=== PATIENT | female | born 1975 | race Caucasian/White ===

== ENCOUNTER 2017-01-03 16:24 | Emergency (ER) | payer OTHER ==
[~2017-01-03] VITALS: Ht 170.2 cm; Wt 73.6 kg
[~2017-01-03 16:24] MED LIST: DESV50TA PO; LAMO200T PO; LORA-303 PO; LORA0.5T PO; OMEP20TA86 PO; ONDA4TAB9 PO
[2017-01-03 16:51] VITALS: BP 119/87; PULSE 95; RESP 18; O2SAT 100
[2017-01-03] MEDS ORDERED: hydrOXYzine Pamoate 25 mg Capsule PO ONE (18:15)
--- NOTE | 2017-01-03 18:22 | ED.REPORT ---
HPI-Psychiatric Illness Date of Service Jan 03, 2017 ED Provider: Hardeep Feldman PA-C Nohelia is a 41-year-old female with a history of bipolar disorder, PTSD and anxiety who presents with a chief complaint anxiety. She reports worsening anxiety and panic over the last week associated with reduced sleep, reduced eating. States she does not feel safe to be by herself because of the possible panic attacks. Patient states that her primary care provider is weaning her from benzodiazepines. She reports taking half milligram of lorazepam twice a day previously. She is also recently discontinued Proventil as in. She is currently taking Trileptal, Pristiq, clonidine and buspirone. She reports being engaged with mental health services through [facility], which she is not finding useful. Admits to suicidal ideation without attempt or plan. Reports that her mother committed suicide admits to a history of admissions for depression and anxiety. He does not have access to firearms, is recovering alcoholic, denies drug use. Denies thoughts of harming others, auditory or visual hallucinations. She wishes to have her drugs adjusted or to be admitted with the goal of making sure she is on the right medications. She presents with a supportive friend. Nursing Notes Stated Complaint: ANXIETY Chief Complaint: Psychiatric Complaint Nursing Notes Reviewed: Yes Allergies: Coded Allergies: hydrocodone bitartrate (Verified Allergy, Unknown, 01/03/17) hydromorphone (Verified Allergy, Unknown, 01/03/17) Uncoded Allergies: "ALL NARCOTICS" (Allergy, Unknown, 05/29/15) Scheduled Desvenlafaxine Succinate ER (Pristiq ER) 50 Mg Tablet 50 MG PO DAILY Lamotrigine (Lamictal) 200 Mg Tablet 200 MG PO DAILY Lorazepam (Lorazepam) 0.5 Mg Tablet 0.5 MG PO BID Lorazepam (Ativan) 1 Mg Tablet 1 MG PO ASDIRECTED 2 mg q 6 hrs 4 hrs then 1 mg q 6 hrs 24 hrs then 1 mg q 8 hrs 24 hrs then 1 mg q 12 hrs 24 hrs then 1 mg Omeprazole (Omeprazole) 20 Mg Tablet.dr 20 MG PO BID Scheduled PRN Ondansetron ODT (Zofran ODT) 4 Mg Tablet 4 MG PO Q4H PRN PRN For Nausea General Time Seen by MD: 17:43 Chief Complaint Anxious Risk-Psychiatric Illness Suicide Risk Stratification Suicide Risk Factors - Adult: : Family Hx of SuicideNo: Access to firearms, Alcohol use, Close associate suicide, Previous attempt, Prior psych admission, Substance abuse RF Statements: Risk factors reviewed Past Medical History Past Medical History Per old records: Polysubstance abuse and mood disorder NOS Anxiety. bipolar Past Surgical History none reported Family History none reported Smoking History Current Every Day Smoker Social History none reported Alcohol Use: Denies alcohol use Drug Use: Denies drug use Other Social History: Local resident Ambulatory Status Independent Review of Systems General: Denies fever, chills, malaise. HEENT: Denies congestion, headache, sore throat. Respiratory: Denies dyspnea, cough, shortness of breath, wheezing. Cardiovascular: Denies chest pain, palpitations. Gastrointestinal: Admits diarrhea alternating with constipation, abdominal pain. Genitourinary: Denies frequency, urgency, dysuria, hematuria. Otherwise as noted in HPI. Physical Exam General: Well appearing, well developed, well nourished, moderate to severe distress. Moderately agitated. Head: Atraumatic, normocephalic. No mastoid tenderness. Eyes: No scleral icterus or injection. No discharge. PERRL. Vision grossly intact. Ears: Pinna and tragus nontender with manipulation. External auditory canal patent, atraumatic and without discharge. Tympanic membrane aviles, shiny and translucent without fluid, bulging, retraction or perforation. Hearing grossly intact. Nose: Symmetrical, nares patent without discharge. No frontal or maxillary sinus tenderness. Mouth/pharynx: normal dentition, mucus membranes moist. Tonsils 2+ and symmetrical, uvula midline. Pharynx noninjected, no cobblestoning or discharge. Voice clear. Neck: No tenderness or lymphadenopathy. Trachea midline. Respiratory: Regular rate and rhythm. Breath sounds present, clear to auscultation and equal bilaterally. No respiratory distress. No increased work of breathing, speaks in complete sentences. Cardiovascular: Regular rate and rhythm, without murmur, gallop or rub. No pedal edema. Gastrointestinal: Abdomen flat and non-tender without guarding or rebound. Bowel sounds normoactive. Skin: Warm and dry. Neurological: Grossly nonfocal. Cranial nerves: Vision grossly intact, PERRL, EOMI. Facial motion symmetrical, sensation to light touch over forehead, maxilla and mandible present and equal B /L. Voice clear and fluent, no drooling/pooling of saliva, uvula rises midline. Psychological: Alert and oriented. Speech appropriate, linear and logical. No evidence of internal stimuli. Hyperverbal. Agitated, tearful. Initial Vital Signs Vital Signs (First) Date Time Temp Pulse Resp B/P Pulse Ox O2 Delivery O2 Flow Rate FiO2 01/03/17 16:51 37.1 95 18 119/87 100 Room Air Initial VS: Vital signs normal Interpretation & Diagnostics Lab Results Interpretation Test 01/03/17 18:00 Hold Urine Received (Received) Re-Eval/Medical Decision Med Decision/Clinical Course 31-year-old female with history of bipolar disorder and anxiety recently discontinued benzodiazepines by her primary care provider. She was on 1 mg of lorazepam per day. Reports increasing anxiety, panic attacks. Admits to suicidal ideation without intent or plan. Patient sees to have her medications adjusted or be admitted. Physical examination is benign. Dispensed 25 mg hydroxyzine Unfortunately, due to high volume social service liaison is not available to see the patient this evening. I discussed this with the patient and made it very clear that she was welcome to stay in the department until tomorrow when she can be assessed. Patient reports that she wants to go home but remains quite anxious. At this point I feel it is reasonable to offer her 1 mg of lorazepam, telling her we will reassess prior to discharge. After lorazepam is dispensed, the patient departed the department. She did not receive discharge instructions but we had previously discussed return precautions. I do not feel that she is acutely suicidal and believe that she is competent to make this decision. Discharge & Departure Departure Notes Patient departed without being discharged. I do not feel that she is a threat to herself or others. I feel that she is competent to make this decision. It has been made clear to her that she is welcome to return to this department. Impression: Primary Impression: Anxiety )( Condition at Discharge: No danger to self, No danger to others Disposition: Home Referrals: Selma Caballero MD (PCP) EDSupervising Provider for APC: Andrew Botello DO copies to: Selma Caballero MD, Seth PA-C Jan 03, 2017 18:22
[2017-01-03] MEDS ORDERED: LORazepam 1 mg Tablet PO ONE (20:20)
== END 2017-01-03 20:40 | disposition home or self-care (01) ==
LOC: SED 16:24
DX: F41.9 Anxiety disorder, unspecified (principal); R45.851 Suicidal ideations; F31.9 Bipolar disorder, unspecified; F17.200 Nicotine dependence, unspecified, uncomplicated; Z88.5 Allergy status to narcotic agent
CPT/HCPCS: 81025; 82075; 99283; Q0177

== ENCOUNTER 2017-04-27 19:18 | Emergency (ER) | payer OTHER ==
[~2017-04-27] VITALS: Ht 170.2 cm; Wt 72.7 kg
[2017-04-27 19:21] VITALS: BP 121/80; PULSE 77; RESP 17; O2SAT 97
--- NOTE | 2017-04-27 20:04 | ED.REPORT ---
HPI-Rash / Abscess Date of Service Apr 27, 2017 ED Provider: Doc,Ed MD History of Present Illness: 42-year-old female here for abscess in right upper inner thigh. She has a reoccurring abscess here, this has been occurring for 4 days. She does not know if there is a palpable lump when it is not flared up. She usually gets in the right inner thigh although she will get another areas of her genitals. None in her axilla. She also complains of cystic acne-like symptoms. She states she has a history of a staph rash that was different than this abscess. No fever otherwise feels well. Nursing Notes Stated Complaint: LUMP ON RIGHT INNER THIGH Chief Complaint: Skin Rash/Abscess Nursing Notes Reviewed: Yes Allergies: Coded Allergies: hydrocodone bitartrate (Verified Allergy, Unknown, 01/03/17) hydromorphone (Verified Allergy, Unknown, 01/03/17) Uncoded Allergies: "ALL NARCOTICS" (Allergy, Unknown, 05/29/15) Scheduled Bacitracin (Bacitracin Ointment) 28.4 Gm Oint...g. 1 APPLIC TP BID Desvenlafaxine Succinate ER (Pristiq ER) 50 Mg Tablet 50 MG PO DAILY Lamotrigine (Lamictal) 200 Mg Tablet 200 MG PO DAILY Lorazepam (Lorazepam) 0.5 Mg Tablet 0.5 MG PO BID Lorazepam (Ativan) 1 Mg Tablet 1 MG PO ASDIRECTED 2 mg q 6 hrs 4 hrs then 1 mg q 6 hrs 24 hrs then 1 mg q 8 hrs 24 hrs then 1 mg q 12 hrs 24 hrs then 1 mg Omeprazole (Omeprazole) 20 Mg Tablet.dr 20 MG PO BID Scheduled PRN Ondansetron ODT (Zofran ODT) 4 Mg Tablet 4 MG PO Q4H PRN PRN For Nausea General Time Seen by MD: 19:58 Chief Complaint Abscess Hx Obtained From: Patient Arrived By: Walk-in Onset Occurred: 4 days ago Symptom Duration: Constant Location: : Lower extremity Severity: Current: Mild Severity: Maximum: Mild Pertinent Negative: Pt denies other symptoms Recent Healthcare: No recent doctor visit Similar Sx Previous: Yes Past Medical History Past Medical History Per old records: Polysubstance abuse and mood disorder NOS Anxiety. bipolar Past Surgical History none reported Family History none reported Smoking History Current Every Day Smoker Social History none reported Alcohol Use: Denies alcohol use Drug Use: Denies drug use Other Social History: Local resident Ambulatory Status Independent Review of Systems Skin: Reports Rash Complete sys rev & neg: except as marked. Physical Exam Initial Vital Signs Vital Signs (First) Date Time Temp Pulse Resp B/P Pulse Ox O2 Delivery O2 Flow Rate FiO2 04/27/17 19:21 36.8 77 17 121/80 97 Room Air Initial VS: Reviewed, Vital signs normal Head / Eyes: Atraumatic, Normocephalic, PERRL ENT: Mucous membranes moist, Conjunctiva normal, No scleral icterus Neck: Supple, Non-tender, Full range of motion Respiratory: Breath sounds normal, Clear to auscultation, No respiratory distress Cardiovascular: Regular rate & rhythm, Heart sounds normal, Intact distal pulses Abdomen / GI: Soft, Non-tender, No guarding, No rebound, No distention Neurologic: Alert, Oriented, Nonfocal Psychiatric: Mood/affect normal, Behavior normal, Normal thought content Rash / Lesion Notes: Quarter sized lesion fluctuant on the right upper inner thigh. Mild tender. No induration. Procedures Incision & Drainage Abscess Time: 20:25 Procedure Performed by: Allied health pract Consent / Setup / Site Prep: Informed consent provided Local Anesthesia: Lidocaine 1% Incised Abscess with Scalpel: #11 Pus Drained: Small, Purulent discharge, Bloody Discharge & Departure Shift Change Sign-Out Laboratory Evaluation: Lab evaluation discussed Response to Therapy: Improved Impression: Primary Impression: Abscess Disposition: Home Discharge Condition All VS Reviewed: Yes Condition: Stable Patient Instructions: Abscess (GEN) Additional Instructions: Use warm moist compresses on upper thigh and other abscesses as they occur. Do this 3 times a day. You could also do a warm bath. Apply antibiotic ointments to times a day as well to abscesses. return if redness increases or pain increases. Follow up with a computing systems mechanic for further removal of these cysts Referrals: Selma Caballero MD (PCP) EDSupervising Provider for APC: Aureliano Arenas Linnea K ARNP Apr 27, 2017 20:04
[2017-04-27] MEDS ORDERED: BACI28.4 TP (20:31)
== END 2017-04-27 20:57 | disposition home or self-care (01) ==
LOC: SED 19:18
DX: L02.415 Cutaneous abscess of right lower limb (principal); F17.200 Nicotine dependence, unspecified, uncomplicated; Z88.5 Allergy status to narcotic agent